=== PATIENT | female | born 1945 | race Two or more races ===

== ENCOUNTER 2020-12-31 19:17 | Emergency (ER) | payer OTHER ==
[~2020-12-31] VITALS: Ht 160 cm; Wt 63.5 kg
--- NOTE | 2020-12-31 19:27 | NUR ---
ALCIRA 80 FROM HOME FOR C/O WEAKNESS X 1 DAY. PER EMS "PT HAD 2 FENTANYL PATCH ON HER STOMACH WHICH WAS REMOVED BY EMS", PT NOTED LETHARGIC, ANSWERS QUESTION SLOWLY, NAD NOTED. PENDING MD BARILLAS
[2020-12-31] MEDS ORDERED: NALOXONE PREFILLED SYRINGE 2 MG/2 ML SYRINGE ONE (19:32)
[2020-12-31] MEDS ORDERED: ONDANSETRON HCL/PF 4 MG/2 ML VIAL ONE (19:42)
[2020-12-31 19:59] LABS: BASOPHILS # (AUTO) 0.1 /CMM (0.0-0.2); BASOPHILS % (AUTO) 0.7 % (0.0-2.0); EOSINOPHILS % (AUTO) 1.6 % (0.0-6.0); HEMATOCRIT 35 % (33-45); HEMOGLOBIN 11.6 g/dL (11.5-14.8); LYMPHOCYTES # (AUTO) 2.1 /CMM (0.8-4.8); LYMPHOCYTES % (AUTO) 20.7 % (20.0-44.0); MEAN CORPUSCULAR HGB CONC 33 g/dl (31.0-36.0); MEAN CORPUSCULAR VOLUME 89 fL (82-100); MONOCYTES # (AUTO) 0.8 /CMM (0.1-1.30); MONOCYTES % (AUTO) 8.5 % (2.0-12.0); NEUTROPHILS # (AUTO) 6.8 /CMM (1.8-8.9); NEUTROPHILS % (AUTO) 68.5 % (43.0-81.0); PLATELET COUNT (AUTO) 174 /CMM (150-450); RED BLOOD CELL COUNT(AUTO) 3.96 MIL/uL (4.0-5.2)
[2020-12-31] MEDS ORDERED: ONDANSETRON HCL/PF 4 MG/2 ML VIAL IV ONE (20:00)
[2020-12-31] MEDS ORDERED: NALOXONE HCL 0.4 MG/ML AMPUL IV ONE (20:00)
[2020-12-31] MEDS ORDERED: IV NS 0.9% 1,000 ML BAG IV ONE (20:00)
[2020-12-31 20:11] LABS: CALCIUM, SERUM 10.2 mg/dL (8.5-10.1); CARBON DIOXIDE 26 mmol/L (21-32); CHLORIDE 97 mmol/L (98-107); GLUCOSE 124 mg/dL (74-106); POTASSIUM 4.3 mmol/L (3.5-5.1); SODIUM SERUM 130 mmol/L (136-145); UREA NITROGEN, BLOOD 13 mg/dL (7-18)
--- NOTE | 2020-12-31 20:24 | NUR ---
COVID SWAB SENT
[2020-12-31 20:29] LABS: ALANINE AMINOTRANSFERASE 22 U/L (12-78); ALBUMIN 3.7 g/dL (3.4-5.0); ALKALINE PHOSPHATASE 108 U/L (46-116); ASPARTATE AMINOTRANSFERASE 17 U/L (15-37); BILIRUBIN,DIRECT 0.2 mg/dL (0.0-0.2); BILIRUBIN,TOTAL 0.7 mg/dL (0.2-1.0); THYROID STIMULATING HORMONE 4.341 uIU/mL (0.358-3.74); TOTAL PROTEIN, SERUM 7.6 g/dL (6.4-8.2)
[2020-12-31] MEDS ORDERED: NALOXONE PREFILLED SYRINGE 2 MG/2 ML SYRINGE IV ONE (20:30)
--- NOTE | 2020-12-31 20:32 | NUR ---
[facility], EX : HOME: [phone], CELL: [phone]
--- NOTE | 2020-12-31 20:41 | NUR ---
URINE COLLECTED AND SENT
--- NOTE | 2020-12-31 21:12 | NUR ---
DR. FARLEY SPEAKING WITH [facility] ALEXANDRA
--- NOTE | 2020-12-31 21:37 | NUR ---
[facility] E[facility] CALLED. PER [facility] WILL BE HERE AT 2230. GOING TO [facility]. ACCEPTING DR IS Dayne HOLCOMB. NUMBER FOR REPORT IS .
[2020-12-31 21:59] LABS: BILIRUBIN,URINE NEGATIVE (NEGATIVE); COLOR,URINE YELLOW (YELLOW); LEUKOCYTE ESTERASE ,URINE NEGATIVE (NEGATIVE); NITRITE, URINE NEGATIVE (NEGATIVE); PROTEIN,URINE NEGATIVE (NEGATIVE); UGLUCOSE NEGATIVE (NEGATIVE); UROBILINOGEN,URINE 0.2 EU/dL (0.2)
[2020-12-31 22:04] VITALS: BP 139/107
--- NOTE | 2020-12-31 22:45 | NUR ---
REPORT GIVEN TO JIMMIE RIVERO AT [facility]
--- NOTE | 2020-12-31 22:46 | NUR ---
PT LEFT VIA [facility] ([facility]), PT LEFT IN STABLE CONDITION TO [facility] ER. REPORT GIVEN TO AMBULANCE STAFF. DENIES ANY PAIN/DISCOMFORT, VSS. NAD
== END 2020-12-31 22:50 | disposition short-term general hospital (02) ==
LOC: ER 19:20
DX: T40.411A Poisoning by fentanyl or fentanyl analogs, accidental (unintentional), initial encounter (principal); R53.1 Weakness; Y92.019 Unspecified place in single-family (private) house as the place of occurrence of the external cause; G89.29 Other chronic pain; M79.7 Fibromyalgia; Z20.822 Contact with and (suspected) exposure to COVID-19; E78.5 Hyperlipidemia, unspecified; I48.91 Unspecified atrial fibrillation; Z79.01 Long term (current) use of anticoagulants; J98.11 Atelectasis; R10.9 Unspecified abdominal pain; I10 Essential (primary) hypertension; E11.9 Type 2 diabetes mellitus without complications; Z79.891 Long term (current) use of opiate analgesic; R00.1 Bradycardia, unspecified; E87.1 Hypo-osmolality and hyponatremia; R11.2 Nausea with vomiting, unspecified
CPT/HCPCS: 36415; 71045; 80048; 80076; 80307; 80320; 81003; 82962; 83605; 83880; 84439; 84443; 84484; 85025; 85240 ×2; 85730; 86850 ×2; 87040 ×2; 87081; 87426; 93005; 96361; 96374; 96375; 99285; C9803; J2310; J2405; G0480